=== PATIENT | male | born 1945 | race Caucasian/White ===

== ENCOUNTER → 2024-05-06 | Outpatient (CLI) | payer MEDICARE, BC, SELFPAY ==
[2024-05-06 15:52] LABS: Prostate Specific Antigen < 0.10 ng/mL (0-4.00)
[2024-05-06 15:57] LABS: Alanine Aminotransferase 19 U/L (10-49); Albumin, Serum 4.2 gm/dL (3.4-4.8); Albumin/Globulin Ratio 1.5 (1.2-2.2); Alkaline Phosphatase 68 U/L (46-116); Anion Gap 8 (7-16); Aspartate Amino Transferase 17 U/L (0-34); BUN/Creatinine Ratio 16 Ratio (12-20); Bilirubin,Total 0.2 mg/dL (0.3-1.2); Blood Urea Nitrogen 16 mg/dL (9-23); Calcium 10.8 mg/dL (8.3-10.6); Calcium (Corrected) 10.8 mg/dL (8.5-10.1); Carbon Dioxide 28.8 mMol/L (20.0-31.0); Chloride 101 mMol/L (98-107); Globulin 2.8 gm/dL (2.3-3.5); Glucose 113 mg/dL (74-106); Osmolality,Calculated 277 (275-295); Potassium 3.9 mMol/L (3.4-5.1); Sodium 138 mMol/L (136-145); eGFR > 60 See Note
[2024-05-12 06:39] LABS: Testosterone,Total* 249 ng/dL (250-1100)
== END | disposition home or self-care (01) ==
PROVIDERS: PCP Family Medicine; Referring Provider Surgery Surgical Oncology; Visit Provider Surgery Surgical Oncology
DX: C61 Malignant neoplasm of prostate (principal); E29.1 Testicular hypofunction; R97.21 Rising PSA following treatment for malignant neoplasm of prostate; N18.1 Chronic kidney disease, stage 1
CPT/HCPCS: 36415; 80053; 84153; 84403

== ENCOUNTER 2024-09-09 13:17 | Outpatient (RCR) | payer MEDICARE, BC, SELFPAY ==
--- NOTE | 2024-09-09 16:11 | CTCCONSULT_ITS ---
[facility] [address] [place], [place] [address] Consultation Note Date: 09/09/2024 MR#: [id number] Name: AJ VILLAFUERTE : 1945 Dx: C79.31 Secondary malignant neoplasm of brain Referring physician. Angeline Horton MD [facility] radiation oncology Reason for consultation. Patient has metastatic melanoma referred for SBRT to brain lesions. History of Present Illness: Patient unfortunate 79-year-old gentleman who had right faith melanoma status post resection 01/2016 ([id number]). Patient had prior scar associated with prior superficial XRT as well as prostate cancer status post prostatectomy 2017. MRI of the brain 04/24/2024 revealed left frontal 3 mm lesion and punctate focus inferior right frontal lobe. 05/15/2023 underwent excision left face melanoma and left modified radical neck dissection and full thickness skin graft. [id number] Patient received 20 Oliveira 1 fraction to the left and right frontal lesion 05/07/2024. At [facility] radiation oncology in [place]. Patient had BRAF/MEKI held 3 days before and after SRS. Patient developed new right frontal met and enhancing lesion in the right cerebellar and left temporal lobe concerning met. The MRI of 07/21/2024 revealed the new 2 cm hemorrhage lesion within the inferior right frontal lobe and new right cerebellar and left temporal lobe lesion. Previously treated site in the left frontal and inferior right frontal lobe consistent with treated intracranial met. Past Medical History: History of melanoma face as noted in HPI. History of multiple nonmelanoma skin cancers treated with surgery and radiation high blood pressure seizures prostate cancer treated with surgery Meds. Amlodipine BRAF/MEKI ibuprofen Allergies none to meds. Social History: Patient a limon denies smoking drinking Review of Systems: Denies headache visual loss. Physical Exam: General: Well-appearing gentleman in no acute distress HEENT: Atraumatic normocephalic extraocular is intact no oral lesions no cervical or supraclavicular adenopathy CV: Chest clear to auscultation heart regular rate and rhythm ABD: Soft no organomegaly or tenderness EXT: No signs clubbing or edema. Assessment: 1. Patient with history of right temporal melanoma status post initial resection 01/2016 [id number] 2. Brain mets noted MRI 04/24/2024 status post 20 Oliveira 1 fraction to left and right frontal lesion 05/07/2024, [facility]. 3. New brain MRI 07/21 new 2 cm hemorrhagic lesion within the inferior right frontal lobe concerning for new intracranial met disease as well as newly visualized area in the right cerebellar and left temporal lobe. 4. Shall review the image data set RT dose and hopefully this could be sent via IroFit 5. Will order MRI SRI brain CT protocol and treat previously untreated brain lesions via SRS. 6. Thank you very much for allowing me to evaluate and manage this patient Cc: [facility] radiation oncology [facility] Electronically signed by: Javi Barnes MD, ISABELR 09/09/2024 4:09 PM
--- NOTE | 2024-09-11 14:11 | CTCTXPLN_ITS ---
[facility] [address] [place], [place] [address] Physician Clinical Treatment Planning Note Date of Service: 09/09/2024 Name: AJ Dior.: 1945 The patient has agreed to proceed with Radiation therapy. Tests and supporting medical records were interpreted to assist in defining the tumor location and extent of disease. Further imaging will be necessary to contour and delineate the volume to which the XRT will be provided. A. Treatment Intent: Palliative B. Modality: 6 MV C. Requested Technique: SRS D. Treatment Site: Brain SBRT E. Critical structures to be contoured on plan: F. In order to accomplish this plan, I am ordering/Prescribing the followin. Simulations (s) will be performed to accomplish a reproducible treatment position, to determine optimal treatment portals/beam arrangements, to design beam modifying devices and verify treatment portals on patient prior to the commencement of Radiation Therapy. 2. Devices; for immobilization and beam shapin. CT Guidance for placement of XRT philippe Scan area: 4. Portal images Frequency: 5. Invivo transit dose measurement once per week on all VMAT patients. 6. Special Physics Consult Requested for: SBRT for palliative 7. Other requests: G. Dose Objectives: Electronically signed by: Javi Barnes M.D. 09/11/2024 2:09 PM
== END 2024-10-06 23:59 | disposition home or self-care (01) ==
LOC: SCTC 13:17
PROVIDERS: PCP Family Medicine; Referring Provider Radiology Therapeutic Radiology; Visit Provider Radiology Therapeutic Radiology
DX: C79.31 Secondary malignant neoplasm of brain (principal); Z85.820 Personal history of malignant melanoma of skin
CPT/HCPCS: 99213; G0463

== ENCOUNTER → 2024-11-06 | Outpatient (CLI) | payer MEDICARE, BC, SELFPAY ==
[2024-11-06 08:55] LABS: Prostate Specific Antigen < 0.10 ng/mL (0-4.00)
[2024-11-06 09:08] LABS: Alanine Aminotransferase 19 U/L (10-49); Albumin, Serum 4.1 gm/dL (3.4-4.8); Albumin/Globulin Ratio 1.4 (1.2-2.2); Alkaline Phosphatase 80 U/L (46-116); Anion Gap 7 (7-16); Aspartate Amino Transferase 22 U/L (0-34); BUN/Creatinine Ratio 13 Ratio (12-20); Bilirubin,Total 0.2 mg/dL (0.3-1.2); Blood Urea Nitrogen 14 mg/dL (9-23); Calcium 10.3 mg/dL (8.3-10.6); Calcium (Corrected) 10.3 mg/dL (8.5-10.1); Carbon Dioxide 28.4 mMol/L (20.0-31.0); Chloride 106 mMol/L (98-107); Creatinine (Component) 1.1 mg/dL (0.6-1.3); Globulin 2.9 gm/dL (2.3-3.5); Glucose 123 mg/dL (74-106); Osmolality,Calculated 282 (275-295); Potassium 4.4 mMol/L (3.4-5.1); Sodium 141 mMol/L (136-145); Total Protein 7.0 gm/dL (5.7-8.2); eGFR > 60 See Note
[2024-11-13 06:18] LABS: Testosterone,Total* 299 ng/dL (250-1100)
== END | disposition home or self-care (01) ==
PROVIDERS: PCP Family Medicine; Referring Provider Physician Assistant; Visit Provider Physician Assistant
DX: C61 Malignant neoplasm of prostate (principal); E29.1 Testicular hypofunction
CPT/HCPCS: 36415; 80053; 84153; 84403

== ENCOUNTER 2025-03-20 07:24 | Emergency (ER) | payer MEDICARE, BC, SELFPAY ==
[2025-03-20] VITALS (8 sets, daily range): BP systolic 78–175; BP diastolic 42–78; PULSE 0–90; RESP 18–22; TEMP 36.6; O2SAT 95–100
--- NOTE | 2025-03-20 07:24 | PC.NURSE ---
PT CAME IN VIA EMS FOR SEIZURE WITH R SIDE FACIAL DROOP AND POSSIBLE CVA. ON ARRIVAL OF EMS PT WAS NOTED TO BEGAN SEIZING THEN BECAME APNEIC. PT WAS IMMEDIATELY MOVED TO ROOM 4 AND NO PULSE WAS PALPATED. CPR STARTED. SEE CODE BLUE SHEET FOR FURTHER NOTES.
--- NOTE | 2025-03-20 07:25 | CHAP ---
Responded to Code Blue (07:25). Prayed near bedside (08:30).
--- NOTE | 2025-03-20 07:32 | PC.NURSE ---
PT INTUBATED BY DR ALANIZ WITH SIZE 8 TUBE, 24 AT THE LIP. POSITIVE COLOR CHANGE ON C02 DETECTOR. BILATERAL LUNG SOUNDS AUSCULTATED BY DR ALANIZ, TUBE SECURED DOWN BY RT
[2025-03-20] MEDS: SUCCINYLCHOLINE INJ 20 MG/ML VIAL 10 ML 100 MG IV (07:33)
--- NOTE | 2025-03-20 07:38 | XR_ITS ---
Examination: CT brain head without contrast. 2-D sagittal coronal reconstructions Date and time of exam 03/20/2025 at 8:08 a.m. CTDI: vol (mGy): 64.6 DLP: (mGycm): 1473 CLINICAL HISTORY: CODE BLUE, rule out stroke Technique: Multiple CT axial sections of the brain have been obtained, 5 mm slice thickness. Contrast has not been administered. 2-D sagittal, coronal reconstructions have been obtained Low dose protocols were performed. One or more of the following dose reduction techniques were used; automated exposure control, adjustment of the mA and/or KV according to patient size, use of iterative reconstruction technique. Findings: The ventricles are mildly enlarged, given the patient's age this is probably within normal limits. There is no displacement of any of the ventricles however there are numerous high density nodular lesions noted involving the margins of both lateral ventricles and protruding into the ventricles. One large lesion measures 1.1 cm in diameter along the lateral margin of the frontal horn of the right lateral ventricle there is a similar high density metastatic lesion along the lateral margin of the left frontal lobe, which measures 1.3 cm in maximum diameter. There is a 1.6 cm hyperdense metastatic lesion along the medial roof of the midportion of the left lateral ventricle, and there is a smaller 6.5 mm hyperdense nodule seen along the posterior third of the lateral wall of the left lateral ventricle. In the brain there is a 1 cm diameter hypodense lesion at the cortical medullary junction of the left frontal lobe with surrounding white matter edema. There is no sulcal effacement nor displacement of any structures around hence there is no mass effect. In the posterior fossa there is an oval extremely vague area of slight increased density noted in the midline along the inferior roof of the fourth ventricle. There is no mass effect, this is of uncertain etiology. It could be within normal limits, however I cannot totally exclude the possibility of a metastatic lesion in this location. The patient is status post a left temporal lobe neurosurgical procedure, and there is a large amount of white matter edema involving the anterior third of the left temporal lobe. There is no mass effect at all. The patient is also status post neurosurgical procedure involving the right frontal bone just posterior lateral to the frontal sinuses, there is also some postoperative white matter edema in this area but there is no mass effect at all in this region. No areas of any abnormal mass effect are identified anywhere on this study, the subarachnoid space appears normal. There is mild bilateral parietal lobe atrophy, consistent with the patient's age. The pituitary gland appears normal. I do not see any evidence of bony metastatic disease anywhere in the calvarium or in the upper 2 cervical vertebra or involving any of the frontal bones. There is fluid density opacifying most of the left ethmoid sinuses with some fluid posteriorly in the left maxillary sinus and a mucous retention cyst seen inferiorly in the right maxillary sinus. The mastoid regions and middle ear cavities are normal in appearance IMPRESSION: 1. 1. There are a large number of sharply circumscribed high density nodular lesions noted throughout the cerebrum, please see above discussion. Many of these are located along the peripheral margins of both right and left lateral ventricles. There is no midline shift and there is no mass effect created by any of these lesions. 2. There is a doubtful questionable similar lesion seen in the midline in the posterior fossa along the inferior roof of the fourth ventricle. 3. These almost certainly relate to metastatic lesions, and hemorrhagic metastatic lesions in the brain are usually secondary to malignant melanoma. 4. There is an area in the left anterior temporal lobe and in the right frontal lobe patient has had previous surgery with localized resection of bone and surgical postoperative clips. There is white matter edema in these areas but there is no mass effect here or anywhere else on this study 5. The patient's eyes are deviated slightly to the right side Negative for acute hemorrhage, mass effect or midline shift
--- NOTE | 2025-03-20 07:38 | XR_ITS ---
Examination: CTA carotids with intravenous contrast CTA brain, head with intravenous contrast. 2-D sagittal, coronal reconstructions. 3-D reconstructions. Exam date and time: March 20, 2025, 0817 hours INDICATIONS: Stroke alert, onset focal neurologic deficit today CTDI: vol (mGy) 14.1 DLP: (mGycm) 470 Technique: Multiple CTA axial brain, head carotid images post intravenous contrast injection 75 cc, [id number]. 2-D sagittal, coronal reconstructions. 3-D reconstructions, 3-D post processing including vascular maximum intensity projection images. Low dose protocols were performed. One or more of the following dose reduction techniques were used; automated exposure control, adjustment of the mA and/or KV according to patient size, use of iterative reconstruction technique. Findings: No significant common carotid carotid bifurcation or internal carotid artery stenoses Dominant left vertebral artery with no critical vertebral artery stenoses in the neck Intracranial vertebral arteries basilar artery posterior cerebral branches fill with no large vessel occlusions Petrous juxtasellar portions internal carotid arteries, M1 segments middle cerebral arteries middle cerebral artery trifurcations vessels fill with no large vessel occlusions Anterior cerebral arteries intact IMPRESSION: No significant neck arterial stenoses No cerebral large vessel arterial occlusions or thrombus
--- NOTE | 2025-03-20 07:38 | PC.CC ---
Tricia MASON and Suze MASON responded to code blue. Tricia MASON attempted to make telephone contact with patient's daughter Magdalena. It was reported by EMS that patient was found unresponsive at a local [facility].
[2025-03-20] MEDS: SODIUM CHLORIDE 0.9% 500 ML 500 ML 999 ML IV (07:42)
[2025-03-20 07:44] LABS: Basophils # (Auto) 0.1 Thou/mm3 (0.0-0.2); Basophils % (Auto) 1 % (0-2.5); Eosinophils # (Auto) 0.2 Thou/mm3 (0.0-0.5); Eosinophils % (Auto) 2 % (0-10); Hematocrit 46.4 % (41.0-53.0); Hemoglobin 15.6 g/dL (13.5-16.0); Immature Granulocytes Auto 0.54 Thou/mm3 (0.00-0.00); Lymphocytes # (Auto) 4.8 Thou/mm3 (1.0-4.8); Lymphocytes % (Auto) 34 % (10-50); Mean Corpuscular HGB Conc 33.6 g/dl (31.0-37.0); Mean Corpuscular Hemoglobin 28.6 pg (25.0-35.0); Mean Corpuscular Volume 85 fL (80-100); Monocytes # (Auto) 1.4 Thou/mm3 (0.0-0.8); Monocytes % (Auto) 10 % (0-12); Neutrophils # (Auto) 7.0 Thou/mm3 (1.8-7.7); Neutrophils % (Auto) 50 % (37-80); Nucleated Red Blood Cell # 0.06 Thou/mm3 (0.00-0.00); Nucleated Red Blood Cell % 0 /100 WBC (0); Platelet Count 274 Thou/mm3 (140-440); RDW Standard Deviation 42.2 fL (35.1-43.9); Red Blood Count 5.45 Miln/mm3 (4.50-5.90); White Blood Count 14.0 Thou/mm3 (3.8-10.6)
[2025-03-20] MEDS: LORazepam 2 MG/ML VIAL IVP (07:47)
--- NOTE | 2025-03-20 07:52 | PC.NURSE ---
PT TO CT WITH RN AND RT AT THIS TIME
[2025-03-20 07:57] LABS: Bacteria,Urine Rare; Bilirubin,Urine Negative (Negative); Blood,Urine Negative (Negative); Clarity,Urine Clear (Clear/Hazy); Collection Type, Urine Catheter; Color,Urine Yellow (Lt Yel-Yel); Glucose, Urine Negative (Negative); Ketones,Urine Negative (Negative); Leukocyte Esterase,Urine Negative (Negative); Nitrite,Urine Negative (Negative); PH,Urine 6.5 (5.0-7.0); Protein,Urine Negative (Neg - Trace); RBC,Urine 3 /hpf (0-3); Specific Gravity,Urine 1.022 (1.001-1.035); Squamous Epithelial Cell,Urine 0 /hpf (0-5); Urobilinogen,Urine Negative mg/dL (0.0-1.0); WBC,Urine < 1 /hpf (0-5)
[2025-03-20 08:02] LABS: Lactate (Lactic Acid) 11.9 mMol/L (0.4-2.0)
[2025-03-20] MEDS: Norepinephrine/D5W 8mg/250ml 8 MG/250 ML BAG 12.672 MG IV (08:05)
[2025-03-20] MEDS: PROPOFOL 1,000 MG IVPB 1,000 MG/100 ML VIAL 4.055 MG IV (08:05)
[2025-03-20 08:08] LABS: INR 1.0 (0.9-1.3); Partial Thromboplastin Time 26.8 Seconds (22.0-36.0); Prothrombin Time 10.9 Seconds (9.0-12.2)
[2025-03-20 08:13] LABS: Alanine Aminotransferase 35 U/L (10-49); Albumin, Serum 4.7 gm/dL (3.4-4.8); Albumin/Globulin Ratio 1.3 (1.2-2.2); Alcohol, Blood Medical < 3.0 mg/dL (0-10.0); Alkaline Phosphatase 83 U/L (46-116); Anion Gap 18 (7-16); Aspartate Amino Transferase 27 U/L (0-34); BUN/Creatinine Ratio 9 Ratio (12-20); Bilirubin,Total 1.1 mg/dL (0.3-1.2); Blood Urea Nitrogen 13 mg/dL (9-23); Calcium 11.0 mg/dL (8.3-10.6); Calcium (Corrected) 11.0 mg/dL (8.5-10.1); Carbon Dioxide 19.3 mMol/L (20.0-31.0); Chloride 99 mMol/L (98-107); Creatinine (Component) 1.4 mg/dL (0.6-1.3); Globulin 3.6 gm/dL (2.3-3.5); Glucose 125 mg/dL (74-106); Magnesium 2.1 mg/dL (1.6-2.6); Osmolality,Calculated 273 (275-295); Potassium 3.9 mMol/L (3.4-5.1); Sodium 136 mMol/L (136-145); Total Protein 8.3 gm/dL (5.7-8.2); Troponin I < 0.020 ng/mL (0.0-0.045); eGFR 52 See Note
--- NOTE | 2025-03-20 08:16 | ESCONSULT_ITS ---
Tele Neuro Consultation Consultation Date 03/20/25 Most Recent Vital Signs Last Vital Signs Pulse 90 03/20/25 07:52 Resp 20 03/20/25 07:52 BP 81/52 L 03/20/25 07:52 Pulse Ox 99 03/20/25 07:52 O2 Del Method Mechanical Ventilation 03/20/25 07:52 Laboratory-Coagulation Panel PT 10.9 Seconds (9.0-12.2) 03/20/25 07:37 INR 1.0 (0.9-1.3) 03/20/25 07:37 APTT 26.8 Seconds (22.0-36.0) 03/20/25 07:37 Consultation Narrative [facility] Tele[facility]urology Consult Services Patient Name:???Joel Gross Date of :???1945 Identification Number:??? 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 (HCC) Impression: Approximately 80M with PMHx R pentecostalism melanoma s/p resection 2015, seizures, MRI brain 04/2024 with bifrontal small lesions treated with radiation 05/07/24, subsequently developed new R frontal/R cerebellar/L temporal mets, MRI 07/2024 with new 2cm hemorrhagic lesion inferior R frontal lobe, prostate cancer s/p prostatectomy 2017, per EMS he was sitting at [facility], bystanders saw him convulse for less than a minute, GCS 3 on EMS arrival, BP was 85/50, concern per EMS for R sided weakness and forced gaze down and to the right, on arrival to the ER with another tonic clonic seizure (per EMS). Patient is unable to provide history; staff called daughter number listed in chart, no answer. Patient coded on arrival, CPR initiated, he regained pulse at 0731, intubated, subsequently had another seizure, he had not at that point received any benzodiazepines and propofol not yet running, I recommended 4mg IV Ativan and 60mg/kg up to 4.5 grams IV Keppra load to ER physician over video. I called daughter Magdalena at [phone] x2, went to [facility]. Exam performed after patient stabilized/intubated/paralyzed, I am not able to be moved to see head of bed myself but nursing reports no gaze deviation and pupils equal, all limbs flaccid. Subsequently patient lifting RUE and RLE off the bed with tremoring of all extremities during evident seizure. CT head with small hemorrhagic lesion L frontal lobe cortex, as well as bright bilateral periventricular lesions possibly hemorrhagic, formal read pending. Patient in status epilepticus. Do not have prior imaging to compare to see if these lesions are new. Recommendation: Diagnostic Studies: ?Repeat CT head in first 8-12hrs Laboratory Studies:? INR/PT ? aPTT? Medications:? Hold antiplatelet therapy/NSAIDS/Anticoagulation Nursing Recommendations: ? Telemetry, IV Fluids Avoid dextrose containing fluids, Maintain euglycemia ? Head of bed 30 degrees ? Neuro checks q1-2 hrs during ICU stay ? Once stable neuro checks q4 hrs ? keep BP less than 140/90's with goal of 130/80s Consultations: ? Need Neurosurgery consultation?STAT DVT Prophylaxis: ? SCDs Disposition: ? Neurology will Follow Additional Recommendation: Load Keppra 60mg/kg up to max 4.5 grams IV; give 4mg IV Ativan; needs STAT EEG; continuous EEG; consult Neurosurgery; coordinate with patient's oncologist if/when possible; maintain BP less than 140 systolic; avoid anticoagulants or antiplatelet medications. Metrics: Last Known Well: Unknown Arrival Time: 03/20/2025 07:26:00 Activation Time: 03/20/2025 07:21:57 Initial Response Time: 03/20/2025 07:24:08 ETA Time reported by hospital: 5 Minutes.Symptoms: seizure. Initial patient interaction: 03/20/2025 07:39:14 NIHSS Assessment Completed: 03/20/2025 07:40:00Patient is not a candidate for Thrombolytic. Thrombolytic Medical Decision: 03/20/2025 07:40:10Patient was not deemed candidate for Thrombolytic because of following reasons: History of previous intracranial hemorrhage, intracranial neoplasm . CT Head: I personally reviewed all the CT images that were available to me and it showed: multifocal hemorrhagic mets Primary Provider Notified of Diagnostic Impression and Management Plan on: 03/20/2025 08:07:15 History of Present Illness:Patient is a 79 year old Male. Patient was brought by EMS for symptoms of seizure. Approximately 80M with PMHx R pentecostalism melanoma s/p resection 2015, seizures, MRI brain 04/2024 with bifrontal small lesions treated with radiation 05/07/24, subsequently developed new R frontal/R cerebellar/L temporal mets, MRI 07/2024 with new 2cm hemorrhagic lesion inferior R frontal lobe, prostate cancer s/p prostatectomy 2017, per EMS he was sitting at [facility], bystanders saw him convulse for less than a minute, GCS 3 on EMS arrival, BP was 85/50, concern per EMS for R sided weakness and forced gaze down and to the right, on arrival to the ER with another tonic clonic seizure (per EMS). Patient is unable to provide history; staff called daughter number listed in chart, no answer. Patient coded on arrival, CPR initiated, he regained pulse at 0731, intubated, subsequently had another seizure, he had not at that point received any benzodiazepines and propofol not yet running, I recommended 4mg IV Ativan and 60mg/kg up to 4.5 grams IV Keppra load to ER physician over video. I called daughter Magdalena at [phone], went to [facility]. ? Medications: Anticoagulant use:??Unknown Antiplatelet use:?Unknown Reviewed EMR for current medications Allergies:? Reviewed Social History: Smoking: No Family History: There is no family history of premature cerebrovascular disease pertinent to this consultation ROS :?ROS Cannot Be Obtained Because:? Patient Cannot Speak Past Surgical History: There Is No Surgical History Contributory To Today?s Visit NIHSS may not be reliable due to: Patient was intubated and paralyzed Examination: BP(85/50),?Pulse(88),?Blood Glucose(155) 1A: Level of Consciousness - Postures or Unresponsive?+ 3 1B: Ask Month and Age - Dysarthric/Intubated/ Trauma/Language Barrier?+ 1 1C: Blink Eyes & Squeeze Hands - Performs 0 Tasks?+ 2 2: Test Horizontal Extraocular Movements - Normal?+ 0 3: Test Visual Kimbrough - Patient is Bilaterally Blind?+ 3 4: Test Facial Palsy (Use Grimace if Obtunded) - Normal symmetry?+ 0 5A: Test Left Arm Motor Drift - No Movement?+ 4 5B: Test Right Arm Motor Drift - No Movement?+ 4 6A: Test Left Leg Motor Drift - No Movement?+ 4 6B: Test Right Leg Motor Drift - No Movement?+ 4 7: Test Limb Ataxia (FNF/Heel-Escalera) - No Ataxia?+ 0 8: Test Sensation - Coma/Unresponsive?+ 2 9: Test Language/Aphasia - Coma/Unresponsive?+ 3 10: Test Dysarthria - Intubated/Unable to Test?+ 0 11: Test Extinction/Inattention - No abnormality?+ 0 NIHSS Score:?30 ICH Score: 2 Christina Coma Score:3-4 (+2) Age >= 80:No (0) ICH volume >= 30mL:No (0) Intraventricular hemorrhage:No (0) Infratentorial origin of hemorrhage:No (0) Pre-Morbid Modified Tex Scale: 7 Points = Unable to assess This consult was conducted in real time using interactive audio and video technology. Patient was informed of the technology being used for this visit and agreed to proceed. Patient located in hospital and provider located at home/office setting. Due to the immediate potential for life-threatening deterioration due to underlying acute neurologic illness, I spent 35 minutes providing critical care. This time includes time for face to face visit via telemedicine, review of medical records, imaging studies and discussion of findings with providers, the patient and/or family. Dr Allyssa Cullen [facility] For Inpatient follow-up with [facility] physician please call [facility] at . As we are not an outpatient service for any post hospital discharge needs please contact the hospital for assistance. If you have any questions for the [facility] physicians or need to reconsult for clinical or diagnostic changes please contact us via [facility] at [phone]. Non-radiologist review of imaging performed to assist with emergent clinical decision-making. Remote physician workstations do not possess the same resolution, calibration, or diagnostic capabilities as hospital-based radiology reading stations, and formal radiologist read is necessary. Signature :?Allyssa Cullen
--- NOTE | 2025-03-20 08:38 | PC.CC ---
Patient's daughter Magdalena made telephone contact with MARLON, Tricia and reports she is in [place] but would be coming to the hospital. CONTAINER WASHER informed medical staff and security.
[2025-03-20 08:39] LABS: Amphetamine/Methamp Scrn,U Negative (Negative); Barbiturate Screen,Urine Negative (Negative); Benzodiazepines Screen,Urine Negative (Negative); Benzoylecgonine Screen, Ur Negative (Negative); Fentanyl Screen,Urine Negative (Negative); Opiate Screen,Urine Negative (Negative); THC Screen,Urine Negative (Negative)
[2025-03-20] MEDS: SODIUM CHLORIDE 0.9% 1000 ML 1,000 ML 100 ML IV (08:42)
--- NOTE | 2025-03-20 08:44 | EKG_ITS ---
[facility] Test Date: 2025-03-20 Pat Name: AJ VILLAFUERTE Department: Room: - Gender: Male Product Builder: : 1945 Requested By: Saran Ojeda Order Number: [id number] Reading MD: Saran Ojeda Measurements Intervals Anna Rate: 82 P: -47 MI: 157 QRS: 66 QRSD: 98 T: 90 QT: 414 QTc: 484 Interpretive Statements SINUS RHYTHM No previous ECG available for comparison /store/S0/[id number]/ecg/[id number].pdf
[2025-03-20] MEDS: levETIRAcetam INJ 100 MG/ML VIAL 5ML 4000 MG IVP (09:14)
[2025-03-20] MEDS: PROPOFOL 1,000 MG IVPB 1,000 MG/100 ML VIAL 20.276 MG IV (09:33)
--- NOTE | 2025-03-20 09:51 | PC.NURSE ---
GAVE REPORT TO TEENA INIGUEZ AT [facility]
[2025-03-20 09:59] LABS: B-Type Natriuretic Peptide 43 pg/mL (0-100)
--- NOTE | 2025-03-20 10:08 | PC.CM ---
2005 REACH at bedside and I had patient 's daughter sign transfer packet. I handed 2 transfer packets one with 1 CD the air transport. I contacted [facility] and gave them ETA. 0855 I started packet and I made a CD. I pushed over images and faxed paperwork to [facility]. I connected Dr. Dumont with Dr. Nieto (ED) and Dr. Jeffries (neuro). Patient accepted to [facility] ED to ED. the number to call and give report is [phone]. [phone] I received a referral to transfer patient for brain bleed. I contacted [facility] transfer center and I spoke to Vidhya. Leigh Ann contacted [facility] and initiated transfer request.
[2025-03-20 10:41] LABS: Reflex Lactate? Y
--- NOTE | 2025-03-20 11:08 | EDNOTE_ITS ---
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 Per medics report, bystanders had ca lled 911 after finding the patient on the floor where it had appeared he had a seizure. State when they arrived, the patient was unresponsive and GCS of 3. Medics states en route to ED there was a change in vital signs and GCS improved to 8. However, once arrived to the ED and transferred from [facility] [place] to ED bed, the patient had a seizure where he was looking up and to the right and shortly after became pulseless. A code blue called overhead. No further history obtainable. Related Data Allergies Allergy/AdvReac Type Severity Reaction Status Date / Time No Known Allergies Allergy Unverified 03/20/25 07:45 Review of Systems Review of Systems ROS Unobtainable: other (Unobtainable due to acuity ) Past Medical History Past Medical History NEUROLOGIC: Positive Cerebrovascular Accident (R SIDE DEFICIT) Social History SMOKING STATUS: Unknown if ever smoked ED Exam Narrative Physical exam: GEN. APPEARANCE: Patient was totally unresponsive though would occasionally for a few seconds move the left arm purposefully but would not move the right side, agonal respirations VITALS: Unobtainable. HEENT: Normocephalic, atraumatic. NECK: Supple, no JVD. CHEST: No deformity and no crepitus. LUNGS: Agonal breathing. ABDOMEN: Soft, flat. EXTREMITIES: No edema. Patient would occasionally for a few seconds move the left arm purposefully but would not move the right side SKIN: Warm and dry, no rashes noted. NEURO:? GCS is 3. Course Quality Measures Suspected type of Stroke: Hemmorrhagic Last know well: unknown Tenecteplase given: Reason(s) TPA not given: Symptoms suggest SAH not given stroke Orders Category Date Time Status 24 HR Medical Restraints Q2HR Care 03/20/25 08:01 Completed Bedside Blood Glucose NOW Care 03/20/25 07:38 Completed Mixer Operator Raw Salt NOW Care 03/20/25 07:38 Completed Continuous Pulse Oximetry NOW Care 03/20/25 07:38 Completed EKG (ED ONLY) *Do not use* NOW Care 03/20/25 08:44 Completed Emergency Titration Protocol Stat Care 03/20/25 09:02 Ordered Londono [Urinary Catheter] QS Care 03/20/25 07:39 Completed Insert IV NOW Care 03/20/25 07:38 Completed Insert NG / OG tube NOW Care 03/20/25 07:38 Completed Intubation NOW Care 03/20/25 07:30 Completed NIH Stroke Scale now Care 03/20/25 07:38 Completed NPO NOW Care 03/20/25 07:38 Completed Neuro Check Q15MIN Care 03/20/25 07:38 Completed Nurse Swallow Screen x1 Care 03/20/25 07:38 Completed Consult to Neurology / Tele-Neurology Routine Cons 03/20/25 07:38 Active Referral - Software Development Engineer Stat Cons 03/20/25 08:[address] angio stroke protocol Stat Exams 03/20/25 07:[address] stroke protocol Stat Exams 03/20/25 07:38 Completed EKG (ED Only) Stat Exams 03/20/25 08:44 Draft Alcohol, Blood Medical Stat Lab 03/20/25 07:37 Completed B-Type Natriuretic Peptide Stat Lab 03/20/25 07:37 Completed CBC Stat Lab 03/20/25 07:37 Completed CMP [Comprehensive Metabolic Panel] Stat Lab 03/20/25 07:37 Completed Drug Screen,Urine Stat Lab 03/20/25 07:40 Completed Lactic Acid [Lactate (Lactic Acid)] Stat Lab 03/20/25 07:37 Completed Magnesium Stat Lab 03/20/25 07:37 Completed PT [Prothrombin Time with INR] Stat Lab 03/20/25 07:37 Completed PTT [Partial Thromboplastin Time] Stat Lab 03/20/25 07:37 Completed Sputum Culture and Gram Stain Stat Lab 03/20/25 08:50 Completed Troponin I Stat Lab 03/20/25 07:37 Completed Urinalysis Stat Lab 03/20/25 07:38 Completed Urine Culture Stat Lab 03/20/25 07:40 Completed EPINEPHrine Inj Abboject Med 03/20/25 07:24 Discontinued 1 mg .ROUTE .STK-MED ONE LORazepam [Ativan Inj] Med 03/20/25 07:46 Discontinued 2 mg .ROUTE .STK-MED ONE LORazepam [Ativan Inj] Med 03/20/25 07:44 Discontinued 2 mg IVP X1 ONE Midazolam Inj [Versed Inj] Med 03/20/25 07:45 Discontinued 2 mg .ROUTE .STK-MED ONE Norepinephrine/D5W 8mg/250ml [Levophed in D5W 8mg/250ml Med 03/20/25 07:48 Discontinued ] 8 mg in 250 ml IV 0.05 mcg/kg/min Propofol 1,000 mg Ivpb [Diprivan Ivpb] Med 03/20/25 07:40 Discontinued 1,000 mg in 100 ml IV .STK-MED Propofol 1,000 mg Ivpb [Diprivan Ivpb] Med 03/20/25 07:41 Discontinued 1,000 mg in 100 ml IV 5 mcg/kg/min Propofol Inj [Diprivan Inj] Med 03/20/25 07:40 Discontinued 60 mg IV X1 ONE Sodium Chloride 0.9% 1000 ml [Ns] 1,000 ml Med 03/20/25 07:45 Discontinued IV Q10H Sodium Chloride 0.9% 500 ml [Ns] 500 ml Med 03/20/25 07:37 Discontinued IV 999 mls/hr Sodium Chloride Rt Hui 10% [NS Rt Hui 10%] Med 03/20/25 08:29 Discontinued 5 ml INH X1 ONE Succinylcholine Inj [Anectine Inj] Med 03/20/25 07:33 Discontinued 100 mg IV X1 ONE dexAMETHasone INJ [Decadron Inj] Med 03/20/25 07:48 Discontinued 10 mg IVP X1 ONE levETIRAcetam INJ [Keppra Inj] Med 03/20/25 07:47 Discontinued 4,000 mg IVP X1 ONE Mechanical [Volume Ventilator] Stat RT 03/20/25 Active Sputum Induction PRN RT 03/20/25 08:30 Ordered Vital Signs Vital signs: Vital Signs Pulse Rate 0 L 03/20/25 07:24 PROCEDURES: Intubation Time out performed: No sedative: none paralytic: Succinylcholine (given after intubated) Mg Given: 100 Laryngoscope: fiber optic video scope Assist Device Used: fiber optic device ET Tube Size: 8 ET Tube Uncuffed: No Tube Secured Depth (cm): 24 Tube Secured Location: lips Tube Placement Confirmation: visualized tube passing through cords, equal breath sounds bilaterally, no breath sounds over epigastrium and confirmation by capnometry Patient Tolerated Procedure: well and no complications Intubation Complications: none Altered Mental Status MDM Narrative MDM Narrative:: I, Adriana Holcomb, am scribing for and in the presence of Dr. Dmuont. 0807a: I spoke with teleneurologist Dr. Cullen, states patients head CT shows small hemorrhagic lesion L frontal lobe cortex, as well as bright bilateral periventricular lesions possibly hemorrhagic. States patient is not a TNK candidate. Recommends loading with Keppra, 4mg IV Ativan, maintaining BP <140, and consult neurosurgery. 0908a: I spoke with neurosurgeon Dr. Jeffries and ED physician Dr. Nieto at [facility]. Discussed patients PMHx, HPI, ED course, exam findings, labs, and radiology results. Patient is accepted for transfer, ER to ER. Patient data External records reviewed:: 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 Normal sinus rhythm, rate 82, no STEMI. ) Lab and/or radiology exams considered but not ordered:: None Interpretation Summary: Ordering Physician: Saran Dumont MD Date of Service: 03/20/25 Procedure(s): CT stroke protocol Accession Number(s): [id number] cc: Saran Dumont MD; Giuseppe Kaplan MD; NO PRIMARY/FAMILY,PHYSICIAN~ Examination: CT brain head without contrast. 2-D sagittal coronal reconstructions Date and time of exam 03/20/2025 at 8:08 a.m. CTDI: vol (mGy): 64.6 DLP: (mGycm): 1473 CLINICAL HISTORY: CODE BLUE, rule out stroke Technique: Multiple CT axial sections of the brain have been obtained, 5 mm slice thickness. Contrast has not been administered. 2-D sagittal, coronal reconstructions have been obtained Low dose protocols were performed. One or more of the following dose reduction techniques were used; automated exposure control, adjustment of the mA and/or KV according to patient size, use of iterative reconstruction technique. Findings: The ventricles are mildly enlarged, given the patient's age this is probably within normal limits. There is no displacement of any of the ventricles however there are numerous high density nodular lesions noted involving the margins of both lateral ventricles and protruding into the ventricles. One large lesion measures 1.1 cm in diameter along the lateral margin of the frontal horn of the right lateral ventricle there is a similar high density metastatic lesion along the lateral margin of the left frontal lobe, which measures 1.3 cm in maximum diameter. There is a 1.6 cm hyperdense metastatic lesion along the medial roof of the midportion of the left lateral ventricle, and there is a smaller 6.5 mm hyperdense nodule seen along the posterior third of the lateral wall of the left lateral ventricle. In the brain there is a 1 cm diameter hypodense lesion at the cortical medullary junction of the left frontal lobe with surrounding white matter edema. There is no sulcal effacement nor displacement of any structures around hence there is no mass effect. In the posterior fossa there is an oval extremely vague area of slight increased density noted in the midline along the inferior roof of the fourth ventricle. There is no mass effect, this is of uncertain etiology. It could be within normal limits, however I cannot totally exclude the possibility of a metastatic lesion in this location. The patient is status post a left temporal lobe neurosurgical procedure, and there is a large amount of white matter edema involving the anterior third of the left temporal lobe. There is no mass effect at all. The patient is also status post neurosurgical procedure involving the right frontal bone just posterior lateral to the frontal sinuses, there is also some postoperative white matter edema in this area but there is no mass effect at all in this region. No areas of any abnormal mass effect are identified anywhere on this study, the subarachnoid space appears normal. There is mild bilateral parietal lobe atrophy, consistent with the patient's age. The pituitary gland appears normal. I do not see any evidence of bony metastatic disease anywhere in the calvarium or in the upper 2 cervical vertebra or involving any of the frontal bones. There is fluid density opacifying most of the left ethmoid sinuses with some fluid posteriorly in the left maxillary sinus and a mucous retention cyst seen inferiorly in the right maxillary sinus. The mastoid regions and middle ear cavities are normal in appearance IMPRESSION: 1. 1. There are a large number of sharply circumscribed high density nodular lesions noted throughout the cerebrum, please see above discussion. Many of these are located along the peripheral margins of both right and left lateral ventricles. There is no midline shift and there is no mass effect created by any of these lesions. 2. There is a doubtful questionable similar lesion seen in the midline in the posterior fossa along the inferior roof of the fourth ventricle. 3. These almost certainly relate to metastatic lesions, and hemorrhagic metastatic lesions in the brain are usually secondary to malignant melanoma. 4. There is an area in the left anterior temporal lobe and in the right frontal lobe patient has had previous surgery with localized resection of bone and surgical postoperative clips. There is white matter edema in these areas but there is no mass effect here or anywhere else on this study 5. The patient's eyes are deviated slightly to the right side Negative for acute hemorrhage, mass effect or midline shift Dictated By: Giuseppe Kaplan MD Signed By: <Electronically signed by Giuseppe Kaplan MD in OV> 03/20/25 0848 Ordering Physician: Saran Dumont MD Date of Service: 03/20/25 Procedure(s): CT angio stroke protocol Accession Number(s): [id number] cc: Saran Dumont MD; Giuseppe Fang MD; NO PRIMARY/FAMILY,PHYSICIAN~ Examination: CTA carotids with intravenous contrast CTA brain, head with intravenous contrast. 2-D sagittal, coronal reconstructions. 3-D reconstructions. Exam date and time: March 20, 2025, 0817 hours INDICATIONS: Stroke alert, onset focal neurologic deficit today CTDI: vol (mGy) 14.1 DLP: (mGycm) 470 Technique: Multiple CTA axial brain, head carotid images post intravenous contrast injection 75 cc, [id number]. 2-D sagittal, coronal reconstructions. 3-D reconstructions, 3-D post processing including vascular maximum intensity projection images. Low dose protocols were performed. One or more of the following dose reduction techniques were used; automated exposure control, adjustment of the mA and/or KV according to patient size, use of iterative reconstruction technique. Findings: No significant common carotid carotid bifurcation or internal carotid artery stenoses Dominant left vertebral artery with no critical vertebral artery stenoses in the neck Intracranial vertebral arteries basilar artery posterior cerebral branches fill with no large vessel occlusions Petrous juxtasellar portions internal carotid arteries, M1 segments middle cerebral arteries middle cerebral artery trifurcations vessels fill with no large vessel occlusions Anterior cerebral arteries intact IMPRESSION: No significant neck arterial stenoses No cerebral large vessel arterial occlusions or thrombus Dictated By: Giuseppe Fang MD Signed By: <Electronically signed by Giuseppe Fang MD in OV> 03/20/25 0836 Medications / Prescriptions Medications or Prescriptions considered but not ordered:: None Medication administrations:: Medication Administration History Discontinued Medications Dexamethasone Sodium Phosphate (Dexamethasone Sod Phos Inj 10 Mg/Ml Vial) 10 mg IVP X1 ONE Stop: 03/20/25 07:49 Last Admin: 03/20/25 08:39 Dose: 10 mg Documented By: ARF Epinephrine HCl (Epinephrine Inj 0.1 Mg/Ml Syringe 10ml) 1 mg .ROUTE .STK-MED ONE Stop: 03/20/25 07:25 Sodium Chloride (Ns) 500 mls @ 999 mls/hr IV .Q31M ONE Stop: 03/20/25 08:07 Last Infusion: 03/20/25 09:43 Dose: Infused Documented By: Admin: 03/20/25 07:42 Dose: 999 mls/hr Documented By: DO Sodium Chloride (Ns) 1,000 mls @ 100 mls/hr IV Q10H ROBERTA Stop: 04/19/25 07:44 Last Admin: 03/20/25 08:42 Dose: 100 mls/hr Documented By: ARF Propofol (Diprivan Ivpb) 1,000 mg in 100 mls @ 4.055 mls/hr IV .Q24H PRN; Protocol PRN Reason: PER PROTOCOL Stop: 04/19/25 07:40 Last Admin: 03/20/25 09:33 Dose: 25 mcg/kg/min, 20.276 mls/hr Documented By: ARF Co-signed By: DO Titration: 03/20/25 09:33 Dose: Infused Documented By: ARF Co-signed By: DO Titration: 03/20/25 09:01 Dose: 25 mcg/kg/min, 20.276 mls/hr Documented By: Titration: 03/20/25 09:00 Dose: 20 mcg/kg/min, 16.221 mls/hr Documented By: Admin: 03/20/25 08:05 Dose: 5 mcg/kg/min, 4.055 mls/hr Documented By: ARF Co-signed By: JOSSY Propofol (Diprivan Ivpb) Confirm Administered Dose 1,000 mg in 100 mls @ ud IV .STK-MED ONE Stop: 03/20/25 07:41 Last Admin: 03/20/25 08:38 Dose: Not Given Documented By: ARF Non-Admin Reason: Override Medication Norepinephrine/Dextrose (Levophed In D5w 8mg/250ml) 8 mg in 250 mls @ 12.672 mls/hr IV .[id number] PRN; Protocol PRN Reason: PER PROTOCOL Stop: 04/19/25 07:47 Last Titration: 03/20/25 09:00 Dose: 0.05 mcg/kg/min, 12.672 mls/hr Documented By: Titration: 03/20/25 08:55 Dose: 0.05 mcg/kg/min, 12.672 mls/hr Documented By: Titration: 03/20/25 08:50 Dose: 0.07 mcg/kg/min, 17.741 mls/hr Documented By: Titration: 03/20/25 08:20 Dose: 0.09 mcg/kg/min, 22.81 mls/hr Documented By: Titration: 03/20/25 08:15 Dose: 0.09 mcg/kg/min, 22.81 mls/hr Documented By: Titration: 03/20/25 08:10 Dose: 0.07 mcg/kg/min, 17.741 mls/hr Documented By: Admin: 03/20/25 08:05 Dose: 0.05 mcg/kg/min, 12.672 mls/hr Documented By: ARF Levetiracetam (Levetiracetam Inj 100 Mg/Ml Vial 5ml) 4,000 mg IVP X1 ONE Stop: 03/20/25 07:48 Last Admin: 03/20/25 09:14 Dose: 4,000 mg Documented By: ARF Lorazepam (Lorazepam 2 Mg/Ml Vial) 2 mg IVP X1 ONE Stop: 03/20/25 07:45 Last Admin: 03/20/25 07:47 Dose: 2 mg Documented By: DO Lorazepam (Lorazepam 2 Mg/Ml Vial) Confirm Administered Dose 2 mg .ROUTE .STK- MED ONE Stop: 03/20/25 07:47 Last Admin: 03/20/25 07:52 Dose: Not Given Documented By: DO Non-Admin Reason: Cancelled by Provider Midazolam HCl (Midazolam Inj 1 Mg/Ml Vial 2 Ml) Confirm Administered Dose 2 mg .ROUTE .STK-MED ONE Stop: 03/20/25 07:46 Last Admin: 03/20/25 07:52 Dose: Not Given Documented By: DO Non-Admin Reason: Cancelled by Provider Propofol (Propofol Inj 10 Mg/Ml Vial 20 Ml) 60 mg IV X1 ONE Stop: 03/20/25 07:41 Last Admin: 03/20/25 08:42 Dose: Not Given Documented By: ARF Non-Admin Reason: Per Protocol Sodium Chloride (Sodium Chloride Rt 10% 15 Ml Nebu) 5 ml INH X1 ONE Stop: 03/20/25 08:30 Succinylcholine Chloride (Succinylcholine Inj 20 Mg/Ml Vial 10 Ml) 100 mg IV X1 ONE; Protocol Stop: 03/20/25 07:34 Last Admin: 03/20/25 07:33 Dose: 100 mg Documented By: DO Comments: no bottle to scan because medication was drawn up by pharmacist. See above Consultations Consultation(s) initiated? (list below): Yes Consultation #1 (Physician, Specialty, Details): See MDM Diagnosis Most likely diagnosis given after review of the tests above:: HEMMORHAGIC CVA Admission Indicated Admission indicated?: not indicated Explain why admission is indicated or not indicated:: Txfer for neurosurgery Admission Request Was there a request for admission?: No Disposition Plan Disposition Plan: Transfer Critical Care Time Critical Care Time Critical Care Time: Yes Total Critical Care Time (min.): 120 Attestation: The high probability of sudden, clinically significant deterioration in the p atient's condition required the highest level of my preparedness to intervene urgently. The services I provided to this patient were to treat and/or prevent clinically significant deterioration. Services included the following: chart data review, reviewing nursing notes and/or old charts, documentation time, custom decorating consultant collaboration regarding findings and treatment options, medication orders and management, direct patient care, vital sign assessments and ordering, interpreting and reviewing diagnostic studies and lab tests. Aggregate critical care time includes only time during which I was engaged in work directly related to the patient's care, as described above, whether at bedside or elsewhere in the Emergency Department. It did not include time spent performing other reported procedures or the services of residents, students, nurses or physician assistants. Discharge Plan Plan Patient Disposition: [facility] Being Transferred to: [facility] Service Needed for Transfer: Neurosurgery Patient condition on transfer: Stable Prescriptions/Referrals Referrals: No Primary/Family,Physician [Primary Care Provider] - In 1 week Problem List Clinical Impression: Hemorrhagic stroke, Metastatic melanoma, Cardiopulmonary arrest, Hypotension, Respiratory failure, Status epilepticus Patient/Caregiver Discharge Instructions Print Language: Upper Sorbian Stand Alone Forms: Shirley Award Info., Patient Portal Info Letter
== END 2025-03-20 09:55 | disposition short-term general hospital (02) ==
PROVIDERS: Emergency Provider Family Medicine
DX: I61.9 Nontraumatic intracerebral hemorrhage, unspecified (principal); I95.9 Hypotension, unspecified; G40.901 Epilepsy, unspecified, not intractable, with status epilepticus; C43.39 Malignant melanoma of other parts of face; I46.9 Cardiac arrest, cause unspecified; C79.31 Secondary malignant neoplasm of brain; J96.90 Respiratory failure, unspecified, unspecified whether with hypoxia or hypercapnia; Z75.1 Person awaiting admission to adequate facility elsewhere
CPT/HCPCS: 31500; 36415; 36600; 51702; 70450; 70496; 70498; 80053; 80307; 80320; 81001; 82803; 83605; 83735; 83880; 84484; 85025; 85610; 85730; 87086; 87205; 93005; 94002; 96365; 96375; 99291; A4314; A4649; J0168; J0330; J1100; J1953; J2060; J2704; J3490; J7030; J7999; Q9967; G0480